=== PATIENT | male | born 1985 | race Caucasian/White ===

== ENCOUNTER 2019-02-02 21:15 | Observation (INO) ==
[2019-02-02] MEDS ORDERED: 0.9 % Sodium Chloride 1,000 ML ONE (21:33)
[2019-02-02] MEDS: 0.9 % Sodium Chloride 1,000 ML IVC SCH ×3 (21:44→23:34)
[2019-02-02] MEDS ORDERED: Ibuprofen 600 MG TABLET PO ONE (21:47)
[2019-02-02 21:50] LABS: Basophils % 0.3 %; Eosinophils % 0.3 %; Hematocrit 41.9 % (37.5-50.1); Hemoglobin 13.9 g/dL (12.9-16.9); Immature Granulocytes % 0.5 % (0-4); Lymphocytes # 1.1 K/mcL (0.6-4.6); Lymphocytes % 8.4 %; Mean Corpuscular HGB Conc 33.2 g/dL (31.6-35.5); Mean Corpuscular Hemoglobin 26.3 pg (28.0-33.3); Mean Corpuscular Volume 79.2 fL (83.0-100.0); Mean Platelet Volume 10.3 fL (9.4-12.4); Monocytes # 1.5 K/mcL (0.0-1.3); Monocytes % 11.4 %; Neutrophils # 10.6 K/mcL (1.6-8.9); Platelet Count 282 K/mcL (140-400); Red Blood Count 5.29 M/mcL (4.19-5.50); Red Cell Distribution Width 13.5 % (11.5-14.5); Segmented Neutrophils % 79.1 %; White Blood Count 13.4 K/mcL (4.3-11.1)
[2019-02-02 21:54] LABS: Bilirubin,Urine Negative (Negative); Blood,Urine Small (Negative); Clarity,Urine Clear (Clear); Color,Urine Yellow (Yellow); Glucose,Urine (UA) Normal (Normal); Ketones,Urine Negative (Negative); Leukocyte Esterase,Urine Negative (Negative); Nitrite,Urine Negative (Negative); Protein,Urine Negative (Neg-Trace); Specific Gravity,Urine 1.015 (1.010-1.025); Urobilinogen,Urine Normal (Normal)
[2019-02-02 21:56] LABS: Bacteria,Urine None Seen per hpf (None-Few); Hyaline Casts,Urine None Seen per lpf (None-Few); Squamous Epithelial Cell,Urine Few per lpf (None-Few); WBC,Urine 0-3 per hpf (0-3)
--- NOTE | 2019-02-02 22:50 | Emergency Department Note ---
Disposition Clinical Impression: Community acquired pneumonia Qualifiers: Laterality: left Lung location: upper lobe of lung Qualified Code(s): J18.1 - Lobar pneumonia, unspecified organism Sepsis Qualifiers: Sepsis type: sepsis due to unspecified organism Sepsis acute organ dysfunction status: without acute organ dysfunction Qualified Code(s): A41.9 - Sepsis, unspe cified organism Disposition: Admitted As Inpatient Condition: Fair Time of Disposition: 07:17 Fever HPI - General Chief Complaint: ED Fever Stated Complaint: Fever / Stiff Neck Time Seen by Provider: 02/02/19 21:38 Source: patient Mode of arrival: ambulatory Limitations: no limitations Nursing Notes Reviewed: Yes Vital Signs Reviewed: Yes - History of Present Illness HPI Narrative: 33-year-old male no significant past medical history presenting due to a 2 day history of gradually progressive and worsening sinus pain, pressures, fevers, generalized malaise, headache and neck pain. The patient states that he has chronic sinusitis and is on nasal decongestants, however he says that he has had some right frontal pain which is gotten worse in the past days and has developed high fevers which are only mildly responsive to ibuprofen/Tylenol. The patient states that he has developed stiffness in his neck in the intervening time. Upon my initial evaluation, my general impression is that the patient is flushed, and appears ill but nontoxic. He is otherwise awake, alert, oriented, engaged to conversation and answering questions appropriately. He has full range of his motion of his neck with a negative Brudzinski's tests. There are no overt lateralizing signs, the patient is in no acute distress; their skin appears to be normal in color, they are not pale, not cyanotic, and not diaphoretic, they are sitting up in hospital bed interacting appropriately with environment. Pt Subjective Complaint: fever, malaise, weakness Onset (ago): day(s) Temperature Source: oral Associated symptoms: Reports: chills, rigors, myalgias, headache, nasal congestion, stiff neck, cough Improves with: acetaminophen, ibuprofen Worsens with: nothing Treatments prior to arrival fever: acetaminophen, ibuprofen, "cold medicine" - Related Data Allergies Allergy/AdvReac Type Severity Reaction Status Date / Time No Known Allergies Allergy Verified 07/25/18 17:14 Review of Systems: *See History of Present Illness for more detail Constitutional: Admits: fever, chills HEENT: admits to frontal sinus pain/pressure, nasal congestion Cardiovascular: Denies: chest pain Respiratory: Admits productive cough of yellow sputum. Denies: dyspnea, hemoptysis Gastrointestinal: Denies: abdominal pain, nausea, vomiting, diarrhea, constipation, hematemesis, melena, hematochezia Genitourinary: Denies: hematuria Musculoskeletal: Admits to neck pain/stiffness. Denies: back pain Integumentary: Denies: rash Neurological: Admits: headache, weakness, lightheadedness/dizziness, denies: numbness, paresthesias, difficulty with ambulation. Endocrine: Admits: fatigue All systems ED: reviewed and negative except as stated. Review of Systems: As Per HPI Fever PMH - Past Medical History Medical history: Reports: non-contributory Surgical history: Reports: no surgical history - Social History Smoking Status: Never smoker Alcohol use: Reports: none Drug use: Reports: none Physical Exam Constitutional: No acute distress, [id number], engaged to conversation, speech is fluid, answers questions appropriately Neuro: GCS 15, no overt focal neurological deficits Head: Atraumatic, normocephalic Eyes: Pupils equal, round and reactive to light, no scleral icterus, no conjunctival injection Neck: Trachea midline without deviation. Anterior neck is supple without swelling. *Chest: Symmetric chest wall rise *Heart: Cardiac rate is tachycardic with regular rhythm with S1 and S2 , no S3 or S4 appreciated, no murmurs, gallops, rubs, or clicks. *Lungs: Lungs are clear to auscultation bilaterally, without accessory muscle use or prolonged expiratory phase. No wheezes, rhonchi or stridor appreciated. Abdomen: Abdomen is flat, soft to palpation, normal bowel sounds. No abdominal bruit auscultated. Non-distended, non-rigid, no organomegaly, no ascites appreciated. No pulsatile mass, no tenderness or guarding to palpation in all four quadrants, no rebound Extremities: Normal capillary refill without evidence of pedal edema, joint swelling or erythema. Pulses/motor intact in all 4 extremities. Psychiatric exam: Patient displays a normal affect and mood for the environment. No overt signs of hallucination. Integumentary: Appears flushed, skin is otherwise warm, dry, intact, normal co jessika. No rash, cyanosis, diaphoresis, or pallor - General Limitations: no limitations General appearance: alert, in no apparent distress Course Vital Signs Temperature 103.0 F H 02/02/19 21:22 Pulse Rate 148 02/02/19 21:22 Respiratory Rate 17 02/02/19 21:22 Blood Pressure 131/91 02/02/19 21:22 O2 Sat by Pulse Oximetry 99 02/02/19 21:22 Temperature 99.4 F 02/03/19 07:04 Pulse Rate 89 02/03/19 07:04 Respiratory Rate 21 02/03/19 07:04 Blood Pressure 143/86 02/03/19 07:04 O2 Sat by Pulse Oximetry 100 02/03/19 07:04 Oxygen Delivery Oxygen Delivery Room Air Fever - MDM Narrative Medical decision making narrative: Patient with elevated white count, x-ray findings concerning for left lower lobe pneumonia. Patient was given IV fluids for sepsis alert as well as azithromycin antibiotic coverage here in the ED. Patient states that he feels better with ma joseph, however given his sepsis status are medical recommendation was admission to hospital medicine service for their evaluation and management. The patient agrees with this plan and will be admitted to the hospitalist medicine service. The patient is hemodynamically stable at the time of admission. - Lab Data Lab results reviewed: Yes I reviewed the patient's lab results. Result diagrams: 02/03/19 05:31 02/03/19 05:31 Lab Results 02/02/19 02/02/19 02/02/19 Range/Units 21:32 21:32 21:32 WBC 13.4 H (4.3-11.1) K/mcL RBC 5.29 (4.19-5.50) M/mcL Hgb 13.9 (12.9-16.9) g/dL Hct 41.9 (37.5-50.1) % MCV 79.2 L (83.0-100.0) fL MCH 26.3 L (28.0-33.3) pg MCHC 33.2 (31.6-35.5) g/dL RDW 13.5 (11.5-14.5) % Plt Count 282 (140-400) K/mcL MPV 10.3 (9.4-12.4) fL Immature Gran % 0.5 (0-4) % Seg Neutrophils % 79.1 % Lymphocytes % 8.4 % Monocytes % 11.4 % Eosinophils % 0.3 % Basophils % 0.3 % Neutrophils # 10.6 H (1.6-8.9) K/mcL Lymphocytes # 1.1 (0.6-4.6) K/mcL Monocytes # 1.5 H (0.0-1.3) K/mcL Eosinophils # 0.0 (0.0-0.6) K/mcL Basophils # 0.0 (0.0-0.2) K/mcL Sodium 135 L (136-145) mEq/L Potassium 3.8 (3.5-5.1) mEq/L Chloride 100 (98-107) mEq/L Carbon Dioxide 26 (23-29) mEq/L BUN 9 (6-20) mg/dL Creatinine 0.92 (0.70-1.30) mg/dL Est GFR ( Amer) > 60 (> 60) Est GFR (Non-Af Amer) > 60 (> 60) BUN/Creatinine Ratio 10 (6-26) Glucose 116 H (70-105) mg/dL Calculated Osmolality 280 (280-300) Lactic Acid 1.9 (0.5-2.2) mmol/L Calcium 9.8 (8.6-10.3) mg/dL Urine Color (Yellow) Urine Clarity (Clear) Urine pH (5.0-8.0) pH Units Ur Specific [place] (1.010-1.025) Urine Protein (Neg-Trace) mg/dL Urine Glucose (UA) (Normal) mg/dL Urine Ketones (Negative) mg/dL Urine Blood (Negative) Urine Nitrite (Negative) Urine Bilirubin (Negative) Urine Urobilinogen (Normal) mg/dL Ur Leukocyte Esterase (Negative) Urine Microscopic RBC (0-3) per hpf Urine Microscopic WBC (0-3) per hpf Ur Squamous Epith Cells (None-Few) per lpf Urine Bacteria (None-Few) per hpf Hyaline Casts (None-Few) per lpf Ur Culture Indicated? (NO) 02/02/19 Range/Units 21:37 WBC (4.3-11.1) K/mcL RBC (4.19-5.50) M/mcL Hgb (12.9-16.9) g/dL Hct (37.5-50.1) % MCV (83.0-100.0) fL MCH (28.0-33.3) pg MCHC (31.6-35.5) g/dL RDW (11.5-14.5) % Plt Count (140-400) K/mcL MPV (9.4-12.4) fL Immature Gran % (0-4) % Seg Neutrophils % % Lymphocytes % % Monocytes % % Eosinophils % % Basophils % % Neutrophils # (1.6-8.9) K/mcL Lymphocytes # (0.6-4.6) K/mcL Monocytes # (0.0-1.3) K/mcL Eosinophils # (0.0-0.6) K/mcL Basophils # (0.0-0.2) K/mcL Sodium (136-145) mEq/L Potassium (3.5-5.1) mEq/L Chloride (98-107) mEq/L Carbon Dioxide (23-29) mEq/L BUN (6-20) mg/dL Creatinine (0.70-1.30) mg/dL Est GFR ( Amer) (> 60) Est GFR (Non-Af Amer) (> 60) BUN/Creatinine Ratio (6-26) Glucose (70-105) mg/dL Calculated Osmolality (280-300) Lactic Acid (0.5-2.2) mmol/L Calcium (8.6-10.3) mg/dL Urine Color Yellow (Yellow) Urine Clarity Clear (Clear) Urine pH 7.0 (5.0-8.0) pH Units Ur Specific [place] 1.015 (1.010-1.025) Urine Protein Negative (Neg-Trace) mg/dL Urine Glucose (UA) Normal (Normal) mg/dL Urine Ketones Negative (Negative) mg/dL Urine Blood Small H (Negative) Urine Nitrite Negative (Negative) Urine Bilirubin Negative (Negative) Urine Urobilinogen Normal (Normal) mg/dL Ur Leukocyte Esterase Negative (Negative) Urine Microscopic RBC 5-15 H (0-3) per hpf Urine Microscopic WBC 0-3 (0-3) per hpf Ur Squamous Epith Cells Few (None-Few) per lpf Urine Bacteria None Seen (None-Few) per hpf Hyaline Casts None Seen (None-Few) per lpf Ur Culture Indicated? NO (NO) - Radiology Data Radiology results reviewed: Yes I reviewed the patient's radiology results. Chest X-Ray 02/02/19 21:39 IMPRESSION: Focal opacities at the left lung base are favored to represent summation artifact as opposed to airspace disease. Otherwise unremarkable exam. D/ / Ck Torres / Ck Torres Interpreting Provider: Ck Torres Sinuses CT 02/03/19 00:58 IMPRESSION: No air-fluid levels. Essentially complete opacification of the left sphenoid sinus. Maxillary sinus disease is likely chronic. D/ / Misael Putnam MD / Misael Putnam MD Interpreting Provider: Misael Putnam MD
[2019-02-02 22:54] LABS: BUN/Creatinine Ratio 10 (6-26); Blood Urea Nitrogen 9 mg/dL (6-20); Calcium 9.8 mg/dL (8.6-10.3); Carbon Dioxide 26 mEq/L (23-29); Chloride 100 mEq/L (98-107); Glucose 116 mg/dL (70-105); Osmolality,Calculated 280 (280-300); Potassium 3.8 mEq/L (3.5-5.1); Sodium 135 mEq/L (136-145); eGFR For African Americans > 60 (> 60); eGFR For Non-African Americans > 60 (> 60)
--- NOTE | 2019-02-02 22:59 | Emergency Department Note ---
Disposition Clinical Impression: Community acquired pneumonia Qualifiers: Laterality: left Lung location: upper lobe of lung Qualified Code(s): J18.1 - Lobar pneumonia, unspecified organism Sepsis Qualifiers: Sepsis type: sepsis due to unspecified organism Sepsis acute organ dysfunction status: without acute organ dysfunction Qualified Code(s): A41.9 - Sepsis, unspe cified organism Disposition: Admitted As Inpatient Condition: Fair Time of Disposition: 00:05 General Adult HPI - General Chief complaint: ED Fever Stated complaint: Fever / Stiff Neck Time Seen by Provider: 02/02/19 21:38 Source: patient Limitations: no limitations Nursing Notes Reviewed: Yes Vital Signs Reviewed: Yes - History of Present Illness Pain Scale: 4 - Related Data Previous Rx's Medication Instructions Recorded Ibuprofen [Motrin] 800 mg PO Q8HR #30 tablet 07/25/18 Loratadine/Pseudophed (12 HR) 1 each PO BID #20 tab.er.12h 07/25/18 [Claritin D (12HR)] Oseltamivir [Tamiflu] 75 mg PO BID #10 capsule 07/25/18 Promethazine/Dextromethorphan 5 ml PO QID #240 syrup 07/25/18 [Promethazine-Dm Syrup] Allergies Allergy/AdvReac Type Severity Reaction Status Date / Time No Known Allergies Allergy Verified 07/25/18 17:14 Past Medical History - Past Medical History Medical history: Reports: non-contributory Surgical history: Reports: no surgical history - Social History Smoking Status: Never smoker Smokeless Tobacco Status: No Alcohol use: Reports: none Drug use: Reports: none Physical Exam - General Limitations: no limitations General appearance: alert Course Vital Signs Temperature 103.0 F H 02/02/19 21:22 Pulse Rate 148 02/02/19 21:22 Respiratory Rate 17 02/02/19 21:22 Blood Pressure 131/91 02/02/19 21:22 O2 Sat by Pulse Oximetry 99 02/02/19 21:22 Temperature 103.0 F H 02/02/19 21:22 Pulse Rate 124 02/02/19 22:34 Respiratory Rate 18 02/02/19 22:34 Blood Pressure 135/72 02/02/19 22:34 O2 Sat by Pulse Oximetry 97 02/02/19 22:34 Oxygen Delivery Oxygen Delivery Room Air Medical Decision Making - Lab Data Lab results reviewed: Yes I reviewed the patient's lab results. Result diagrams: 02/02/19 21:32 02/02/19 21:32 Lab Results 02/02/19 02/02/19 02/02/19 Range/Units 21:32 21:32 21:32 WBC 13.4 H (4.3-11.1) K/mcL RBC 5.29 (4.19-5.50) M/mcL Hgb 13.9 (12.9-16.9) g/dL Hct 41.9 (37.5-50.1) % MCV 79.2 L (83.0-100.0) fL MCH 26.3 L (28.0-33.3) pg MCHC 33.2 (31.6-35.5) g/dL RDW 13.5 (11.5-14.5) % Plt Count 282 (140-400) K/mcL MPV 10.3 (9.4-12.4) fL Immature Gran % 0.5 (0-4) % Seg Neutrophils % 79.1 % Lymphocytes % 8.4 % Monocytes % 11.4 % Eosinophils % 0.3 % Basophils % 0.3 % Neutrophils # 10.6 H (1.6-8.9) K/mcL Lymphocytes # 1.1 (0.6-4.6) K/mcL Monocytes # 1.5 H (0.0-1.3) K/mcL Eosinophils # 0.0 (0.0-0.6) K/mcL Basophils # 0.0 (0.0-0.2) K/mcL Sodium 135 L (136-145) mEq/L Potassium 3.8 (3.5-5.1) mEq/L Chloride 100 (98-107) mEq/L Carbon Dioxide 26 (23-29) mEq/L BUN 9 (6-20) mg/dL Creatinine 0.92 (0.70-1.30) mg/dL Est GFR ( Amer) > 60 (> 60) Est GFR (Non-Af Amer) > 60 (> 60) BUN/Creatinine Ratio 10 (6-26) Glucose 116 H (70-105) mg/dL Calculated Osmolality 280 (280-300) Lactic Acid 1.9 (0.5-2.2) mmol/L Calcium 9.8 (8.6-10.3) mg/dL Urine Color (Yellow) Urine Clarity (Clear) Urine pH (5.0-8.0) pH Units Ur Specific [place] (1.010-1.025) Urine Protein (Neg-Trace) mg/dL Urine Glucose (UA) (Normal) mg/dL Urine Ketones (Negative) mg/dL Urine Blood (Negative) Urine Nitrite (Negative) Urine Bilirubin (Negative) Urine Urobilinogen (Normal) mg/dL Ur Leukocyte Esterase (Negative) Urine Microscopic RBC (0-3) per hpf Urine Microscopic WBC (0-3) per hpf Ur Squamous Epith Cells (None-Few) per lpf Urine Bacteria (None-Few) per hpf Hyaline Casts (None-Few) per lpf Ur Culture Indicated? (NO) 02/02/19 Range/Units 21:37 WBC (4.3-11.1) K/mcL RBC (4.19-5.50) M/mcL Hgb (12.9-16.9) g/dL Hct (37.5-50.1) % MCV (83.0-100.0) fL MCH (28.0-33.3) pg MCHC (31.6-35.5) g/dL RDW (11.5-14.5) % Plt Count (140-400) K/mcL MPV (9.4-12.4) fL Immature Gran % (0-4) % Seg Neutrophils % % Lymphocytes % % Monocytes % % Eosinophils % % Basophils % % Neutrophils # (1.6-8.9) K/mcL Lymphocytes # (0.6-4.6) K/mcL Monocytes # (0.0-1.3) K/mcL Eosinophils # (0.0-0.6) K/mcL Basophils # (0.0-0.2) K/mcL Sodium (136-145) mEq/L Potassium (3.5-5.1) mEq/L Chloride (98-107) mEq/L Carbon Dioxide (23-29) mEq/L BUN (6-20) mg/dL Creatinine (0.70-1.30) mg/dL Est GFR ( Amer) (> 60) Est GFR (Non-Af Amer) (> 60) BUN/Creatinine Ratio (6-26) Glucose (70-105) mg/dL Calculated Osmolality (280-300) Lactic Acid (0.5-2.2) mmol/L Calcium (8.6-10.3) mg/dL Urine Color Yellow (Yellow) Urine Clarity Clear (Clear) Urine pH 7.0 (5.0-8.0) pH Units Ur Specific [place] 1.015 (1.010-1.025) Urine Protein Negative (Neg-Trace) mg/dL Urine Glucose (UA) Normal (Normal) mg/dL Urine Ketones Negative (Negative) mg/dL Urine Blood Small H (Negative) Urine Nitrite Negative (Negative) Urine Bilirubin Negative (Negative) Urine Urobilinogen Normal (Normal) mg/dL Ur Leukocyte Esterase Negative (Negative) Urine Microscopic RBC 5-15 H (0-3) per hpf Urine Microscopic WBC 0-3 (0-3) per hpf Ur Squamous Epith Cells Few (None-Few) per lpf Urine Bacteria None Seen (None-Few) per hpf Hyaline Casts None Seen (None-Few) per lpf Ur Culture Indicated? NO (NO) - Radiology Data Radiology results reviewed: Yes I reviewed the patient's radiology results. Chest X-Ray 02/02/19 21:39 IMPRESSION: Focal opacities at the left lung base are favored to represent summation artifact as opposed to airspace disease. Otherwise unremarkable exam. D/ / Ck Torres / Ck Torres Interpreting Provider: Ck Torres - EKG Data EKG #1 EKG attestation: Yes I reviewed and interpreted this EKG. EKG results narrative: EKG shows a sinus tachycardia with ventricular rate of 139. No significant ST segment elevation or depression. No arrhythmia or ectopy. Critical Care Time Critical Care Time: Yes Total Critical Care Time: 45 Attestation: Critical care performed: Time is exclusive of separately billable procedures. Time includes: direct patient care, patient reassessment, coordination of patient care, interpretation of data (laboratory data, radiology data, and respiratory data), review of patient's medical records, medical consultation and documentation of patient car e. Procedures included in critical care time: Procedures excluded from critical care time: Attestation Statement - Attestation Attestation: IAlex MD, personally evaluated this patient and discussed their management with the resident physician. I reviewed the resident's note and agree with the documented findings, medical decision making, and plan of care. I reviewed the residents documentation and agree with the residents assessment and plan of care. I have personally had face to face time with the patient. I personally supervised and was present for the nieves/critical portions of the following procedures completed by the resident: EKG interpretation. 33-year-old male presents to the emergency department with a complaint of fairly rapid onset of chills and fever and generalized weakness a few hours prior to arrival. He states for the past few days he has had some sinus congestion and frontal headache. Some pain in the anterior or lateral neck area below the ears radiating down the jaw bilaterally. He has had a productive cough with some yellow sputum. On arrival to the emergency department the patient meets sepsis criteria. He is tachycardic with a heart rate in the 140s and a temperature of 103. Alert was called. On examination patient is a well-developed well-nourished male in no acute distress. He is alert and oriented 3. There is no cyanosis. Patient is diaphoretic. Neck is supple with full range of motion. No posterior cervical tenderness. Touches chin to chest without discomfort. There is mild tenderness at the angle of the mandible bilaterally beneath the ears. No palpable cervical lymphadenopathy. Chest is nontender to palpation. Breath sounds are clear and equal bilaterally. Heart is regular with a marked tachycardia. Abdomen is soft and nontender with normal bowel sounds. Extremities are nontender with full range of motion. No focal neurological deficits. EKG shows a sinus tachycardia with ventricular rate of 139. No significant ST segment elevation or depression. No arrhythmia or ectopy. Chest x-ray shows some left basilar opacities. On reviewing the film myself this appears to be a left lingular infiltrate. Labs reviewed. WBC 13.4. Blood cultures obtained and antibiotics initiated. The hospitalist, Dr. Silva, was consulted and accepted admission of the patient.
[2019-02-02] MEDS ORDERED: Azithromycin 500 MG in D5% in Water 250 ML IVPB ONE (23:00)
[2019-02-03] MEDS ORDERED: Ondansetron 4 MG/2 ML VIAL IVP PRN (00:58)
[2019-02-03] MEDS ORDERED: Acetaminophen 325 MG TABLET PO PRN (00:59)
[2019-02-03] MEDS ORDERED: Ibuprofen 400 MG TABLET PO PRN (00:59)
[2019-02-03] MEDS ORDERED: traMADol 50 MG TABLET PO PRN (00:59)
[2019-02-03] MEDS: Ringers Solution, Lactated 1,000 ML IVC SCH ×2 (01:37→06:25)
--- NOTE | 2019-02-03 01:42 | Internal Med History&Physical ---
Date of Encounter: 02/03/19 Time of Encounter: 01:41 Internal Medicine - H&P: HPI Chief complaint: fever Admitted From: Home Plans for Post Hospital Care: Home History of present illness: Andrey Fernandez is a 33 year old man who denies any past medical history resenting to the emergency room with the complaint of fever and chills that started a few hours prior to arrival. He says that over the last few days he has been having some sinus congestion in the frontal aspect some tenderness in his submandibular region. He says he frequently gets sinus infections and suffers from seasonal allergies so he thought nothing of it. Denies associated cough and sore throats. He says the frontal headache moved to was the right temporal region and this afternoon while [place] was in [place] [employer] he developed acute onset chills and felt feverish urge reason he decided to come into the emergency room. On arrival he was febrile at 103F and notably tachycardic. He received multiple doses of antipyretics. Lab work revealed a mild leukocyte elevation at 13.4 and otherwise rest of studies were unremarkable. Chest x-ray done revealed no focal consolidations however there was suggestion of a possible lingular opacity so he was treated empirically with azithromycin. He is admitted for observation. He denies pleuritic chest pain, cough, nausea, vomiting and diarrhea. Vitals: Reviewed General: Well-developed and well-appearing young male lying comfortably in bed in no acute distress. Skin: Warm, diaphoretic and flushed. HEENT: Moist mucous membranes. No conjunctivae pallor. No oropharyngeal exudate or tonsillar swelling. Neck: Palpable submandibular lymphadenopathy. No JVD. No carotid bruits. No palpable thyroid. No nuchal rigidity or signs of meningismus. Chest: Normal thoracic expansion. Normal breath sounds. Clear to auscultation. Heart: Normal S1 & S2; rhythmic. No rubs or murmurs. Abdomen: Non-distended, soft and non-tender to palpation. No peritoneal reaction. Extremities: No clubbing, cyanosis or edema. No calf tenderness. Normal distal pulses. Neurological: Awake, alert and oriented to person, place and time. No focal deficits. Psych: Affect appropriate. Assessment/Plan 1. Sepsis syndrome: Suspect secondary to an upper respiratory tract infection. Given the headache and fever with preceding sinus symptoms, meningitis is always a differential however on clinical examination of the patient, he has no meningeal signs or encephalitic concerns. His mental status is within normal limits. He has no photophobia. He says he feels much better just with receiving IVF alone. Pneumonia is also considered however slight it might be on x-ray. Will also need to rule out acute sinusitis so will get a CT scan of his sinuses for air-fluid level assessment. This seems more plausible based on his clinical symptoms. There are no signs of skin/soft tissue infection, gastrointestinal illness or dysuric symptoms. In the interim will keep on empiric antibiotics in conjunction with fluid resuscitation and antipyretics. 2. DVT prophylaxis: Antiembolic stockings ordered. 3. Obesity: Counseled and educated on therapeutic lifestyle changes for weight loss as it will be of benefit in controlling comorbidities. Rheumatology Specialist evaluation advised. Past Med Surg Social Fam HX - Past Medical History Medical history: non-contributory Psychiatric history: no psych history - Past Surgical History Surgical History: no surgical history - Social History Smoking Status: Former smoker Smokeless Tobacco Status: No Alcohol use: none Drug use: none - Family History Mother Living Status: Still Living Hx Family Cardiac Disorders: No Hx Family Respiratory Disorders: No Hx Family Cancer: No Hx Family GI Disorders: No Hx Family Genitourinary Disorders: No Hx Family Endocrine Disorder: No Hx Family Musculoskeletal Disorders: No Hx Family Neuromuscular Disorders: No Hx Family Neurologic Disorders: No Hx Family HEENT Disorders: No Hx Family Autoimmune Disorders: No Hx Family Reproductive Disorders: No Hx Family Psychosocial Disorders: No Hx Family Medical Disorders: No Father Living Status: Still Living Hx Family Cardiac Disorders: No Hx Family Respiratory Disorders: No Hx Family Cancer: No Hx Family GI Disorders: No Hx Family Genitourinary Disorders: No Hx Family Endocrine Disorder: No Hx Family Musculoskeletal Disorders: No Hx Family Neuromuscular Disorders: No Hx Family Neurologic Disorders: No Hx Family HEENT Disorders: No Hx Family Autoimmune Disorders: No Hx Family Reproductive Disorders: No Hx Family Psychosocial Disorders: No Hx Family Medical Disorders: No Internal Medicine - H&P: Meds Allergy/AdvReac Type Severity Reaction Status Date / Time No Known Allergies Allergy Verified 07/25/18 17:14 All Systems PM: A 10-system review of systems was performed and is negative for pertinent findings except as documented above in the HPI. Family history reviewed and found non-contributory. - Constitutional Vitals: Temp Pulse Resp BP Pulse Ox 99.9 F H 102 16 120/78 95 02/03/19 01:26 02/03/19 01:26 02/03/19 01:26 02/03/19 01:26 02/03/19 01:26 Exam: . Internal Med - H&P Results - Labs CBC & Chem 7: 02/02/19 21:32 02/02/19 21:32 Labs: Short CBC 02/02/19 Range/Units 21:32 WBC 13.4 H (4.3-11.1) K/mcL Hgb 13.9 (12.9-16.9) g/dL Hct 41.9 (37.5-50.1) % Plt Count 282 (140-400) K/mcL Neutrophils # 10.6 H (1.6-8.9) K/mcL BMP 02/02/19 21:32 Sodium 135 L Potassium 3.8 Chloride 100 Carbon Dioxide 26 BUN 9 Creatinine 0.92 Glucose 116 H Calcium 9.8 Urine 02/02/19 Range/Units 21:37 Urine Color Yellow (Yellow) Urine Clarity Clear (Clear) Urine pH 7.0 (5.0-8.0) pH Units Ur Specific [place] 1.015 (1.010-1.025) Urine Protein Negative (Neg-Trace) mg/dL Urine Glucose (UA) Normal (Normal) mg/dL - Impressions ITS Impressions Chest X-Ray 02/02/19 21:39 IMPRESSION: Focal opacities at the left lung base are favored to represent summation artifact as opposed to airspace disease. Otherwise unremarkable exam. D/ / Ck Torres / Ck Torres Interpreting Provider: Ck Torres - Time Spent With Patient Total time spent is greater than 50% in coordination of care (as documented) at patient's floor/unit and/or counseling patient:
[2019-02-03] MEDS ORDERED: Ampicillin/Sulbactam 3,000 MG in 0.9 % Sodium Chloride Mini Bag 100 ML IVPB SCH (06:00)
[2019-02-03 06:20] LABS: Basophils % 0.3 %; Hematocrit 37.6 % (37.5-50.1); Immature Granulocytes % 0.4 % (0-4); Lymphocytes # 1.3 K/mcL (0.6-4.6); Lymphocytes % 14.3 %; Mean Corpuscular HGB Conc 32.4 g/dL (31.6-35.5); Mean Corpuscular Hemoglobin 26.5 pg (28.0-33.3); Mean Corpuscular Volume 81.7 fL (83.0-100.0); Mean Platelet Volume 10.4 fL (9.4-12.4); Monocytes # 1.5 K/mcL (0.0-1.3); Monocytes % 16.7 %; Neutrophils # 6.1 K/mcL (1.6-8.9); Platelet Count 242 K/mcL (140-400); Red Cell Distribution Width 13.6 % (11.5-14.5); Segmented Neutrophils % 68.3 %
[2019-02-03 06:23] LABS: Hemoglobin 12.2 g/dL (12.9-16.9)
[2019-02-03 06:43] LABS: BUN/Creatinine Ratio 11 (6-26); Blood Urea Nitrogen 8 mg/dL (6-20); Calcium 8.8 mg/dL (8.6-10.3); Carbon Dioxide 26 mEq/L (23-29); Chloride 104 mEq/L (98-107); Glucose 110 mg/dL (70-105); Osmolality,Calculated 289 (280-300); Potassium 3.8 mEq/L (3.5-5.1); Sodium 140 mEq/L (136-145); eGFR For African Americans > 60 (> 60); eGFR For Non-African Americans > 60 (> 60)
[2019-02-03] MEDS ORDERED: Azithromycin 500 MG in D5% in Water 250 ML IVPB SCH (09:00)
[2019-02-03] MEDS ORDERED: cefTRIAXone 1,000 MG in Water for inj. (sterile) 10 ML IVPB SCH (09:00)
[2019-02-03 11:44] VITALS: BP 132/86
--- NOTE | 2019-02-03 11:53 | Discharge Summary ---
- NOTES TO OUTPATIENT PROVIDER Notes to Outpatient Provider: f/u with PCP in 3-5 days. Orders not resulted at time of discharge: Pending orders 02/02/19 21:32 Culture,Blood [BC] Stat Date of Encounter: 02/03/19 Time of Encounter: 10:40 - Discharge Diagnosis (1) Sepsis Priority: Primary Status: Acute Qualifiers: Sepsis type: sepsis due to unspecified organism Sepsis acute organ dysfunction status: without acute organ dysfunction Qualified Code(s): A41.9 - Sepsis, unspecified organism (2) Community acquired pneumonia Priority: Primary Status: Acute Qualifiers: Laterality: left Lung location: upper lobe of lung Qualified Code(s): J18.1 - Lobar pneumonia, unspecified organism (3) Sinusitis chronic, sphenoidal Priority: Secondary Status: Acute Hospital course: Mr. Fernandez is a 33 year old male with no significant past medical history presented to ER with the complaint of fever and chills that started a few hours prior to arrival. He has been having some sinus congestion in the frontal aspect some tenderness in his submandibular region. He says he frequently gets sinus infections and suffers from seasonal allergies.He did have frontal headache . Y/d while he was in [place] [employer] he developed acute onset chills and felt feverish. On arrival he was febrile at 103F and notably tachycardia. Pt was given IV hydration and supportive care. His CXR showed Focal opacities at the left lung base. His CT of sinuses showed complete opacification of the left sphenoid sinus. Maxillary sinus disease is likely chronic. Pt was placed on empirical abx Azithromycin and Rocephin. Pt stated he is feeling better today. He denied any more ALC[place]. He remained afebrile since he got admitted to the floor. He denied any confusion / neck pain / body aches. Will d/c him home ins table condition today with PO Abx Augmentin and recommended to f.u with PCP in one week. - Time Spent with Patient Total time spent providing and/or coordinating discharge services: - Discharge Medications Prescriptions: New Amoxicillin/Clavulanate [Augmentin] 875 mg PO BIDWM #20 tablet Lactobacillus Acidophilus [Acidophilus] 1 each PO BID #20 capsule Home Medications: Amoxicillin/Clavulanate [Augmentin] 875 mg PO BIDWM #20 tablet 08/05/19 [Rx] Lactobacillus Acidophilus [Acidophilus] 1 each PO BID #20 capsule 02/03/19 [Rx] Allergies/Adverse Reactions: Allergy/AdvReac Type Severity Reaction Status Date / Time No Known Allergies Allergy Verified 07/25/18 17:14 Date of admission: 02/03/19 00:12 Primary care physician: Paul Collazo MD - Constitutional Vitals: Temp Pulse Resp BP Pulse Ox 98.2 F 100 16 132/86 98 02/03/19 11:42 02/03/19 11:42 02/03/19 11:42 02/03/19 11:42 02/03/19 11:42 General appearance: Present: cooperative, A&O X 3, no acute distress, answers questions appropriately Exam: a - Head Head exam: Present: atraumatic, normal inspection - Neck Neck exam general surgery: Present: supple - Respiratory Respiratory exam: Present: decreased breath sounds. Absent: rales, respiratory distress, wheezes - Cardiovascular Cardiovascular exam: Present: RRR, +S1, +S2. Absent: tachycardia - GI/Abdominal GI/Abdominal exam: Present: normal bowel sounds, soft. Absent: rebound, rigid, tenderness - Extremities Exam Extremities exam: Absent: calf tenderness, pedal edema, tenderness - Back Exam Back exam: Absent: CVA tenderness (L), CVA tenderness (R) - Neurological Exam Neurological exam: Present: alert, CN II-XII intact, normal gait, oriented X3, no focal deficits, strengths equal and symetr throughout. Absent: pronater drift, facial droop, speech deficit - Patient Status Disposition: Home, Self-Care Condition: Good Overall status at discharge: patient is back to baseline - Discharge Instructions Instructions: Community-acquired Pneumonia (DC) Follow Up With: Paul Collazo MD [Primary Care Provider] - Additional Instructions: Follow-up appointments: If there is not an appointment listed below, please call your physician and schedule a follow-up appointment. If you have congestive heart failure and your symptoms return, make an appointment with your physician. Medication List: Carry an up to date list of medications you are taking at all time. We have given you an updated medication list including any new medications that you have been prescribed. Please provide that list to your primary provider Symptoms: If your condition changes or you experience any of the following symptoms, notify your physician immediately: Unusual or worsening pain, fever, persistent nausea and vomiting, bleeding, increase in swelling (especially in your legs), sudden weight gain, extreme dizziness, chest pain, increased drainage or redness from a wound or incision. Go to the emergency department if you experience a problem with breathing. Weights: If you have a history of swelling or shortness of breath, weigh yourself daily and notify your physician if you have a weight gain of two or more pounds in one day or 5 or more pounds in a week. If you experience any of the warning signs for stroke: Sudden numbness or weakness of the face, arm or leg; especially on one side of the body, sudden confusion, trouble speaking or understanding, sudden trouble seeing in one or both eyes, sudden trouble walking, dizziness, loss of balance or coordination, sudden sever headache with no cause; Call 911 or go to the emergency room. Stroke is a medical emergency. Some risk factors for stroke: Age, cigarette smoking, diabetes, excessive alcohol consumption, family history, high blood pressure, overweight, physical inactivity, prior stroke, heart attack, diagnosis of carotid artery stenosis or other artery disease. If you smoke, STOP: Smoking or tobacco use significantly increases your risk of heart and lung disease. Your chance of disease greatly increases if you continue to smoke. For more information, call the [facility] [facility] tobacco quit line for smoking cessation 0-587-LNAM-NOW ( ) - Diet and Activity Activity: increase activity as tolerated Diet: low salt diet
--- NOTE | 2019-02-04 06:42 | Electrocardiograph Report ---
[facility] [facility] Test Date: 2019-02-02 Pat Name: Andrey Fernandez Department: EXAM4 Room: 3B39 Gender: M Sourcing Analyst: : 1985 Requested By: Alfonso Anthony Order Number: [id number] Reading MD: Mian Lopez Measurements Intervals [place] Rate: 139 P: 60 IN: 146 QRS: 76 QRSD: 97 T: -33 QT: 260 QTc: 396 Interpretive Statements Sinus tachycardia Nonspecific T abnormalities Electronically Signed On 02-04-2019 6:41:06 EDT by Mian Lopez
== END 2019-02-03 12:45 | disposition home or self-care (01) ==
LOC: EMEROOARM 21:15 → 3BNU 21:15 → SUATTDRO 02-03 00:12 → 3BNU 02-03 01:12
PROVIDERS: ADMIT Internal Medicine; ATTEND Family Medicine

== ENCOUNTER 2021-12-12 09:00 | Observation (INO) ==
[2021-12-12] MEDS ORDERED: Aspirin 81 MG TAB.CHEW PO ONE (09:22)
[2021-12-12 09:40] LABS: Basophils % 0.4 %; Eosinophils # 0.5 K/mcL (0.0-0.6); Eosinophils % 5.4 %; Hematocrit 41.6 % (37.5-50.1); Hemoglobin 13.6 g/dL (12.9-16.9); Immature Granulocytes % 0.5 % (0-4); Lymphocytes # 3.2 K/mcL (0.6-4.6); Mean Corpuscular HGB Conc 32.7 g/dL (31.6-35.5); Mean Corpuscular Hemoglobin 26.1 pg (28.0-33.3); Mean Corpuscular Volume 79.7 fL (83.0-100.0); Mean Platelet Volume 10.5 fL (9.4-12.4); Monocytes # 1.2 K/mcL (0.0-1.3); Monocytes % 11.9 %; Neutrophils # 4.8 K/mcL (1.6-8.9); Platelet Count 352 K/mcL (140-400); Red Blood Count 5.22 M/mcL (4.19-5.50); Red Cell Distribution Width 12.8 % (11.5-14.5); Segmented Neutrophils % 48.8 %; White Blood Count 9.8 K/mcL (4.3-11.1)
[2021-12-12 09:47] LABS: INR 1.1; Prothrombin Time 12.3 Seconds (9.4-12.1)
[2021-12-12 09:50] LABS: Activated Partial Thrombo Time 32.5 Seconds (26.0-36.0)
[2021-12-12] MEDS: Nitroglycerin 0.4 MG TAB.SUBL SL PRN ×2 (09:54→10:01)
[2021-12-12 10:07] LABS: Alanine Aminotransferase 18 Units/L (7-52); Albumin 4.1 g/dL (3.5-5.7); Albumin/Globulin Ratio 1.1 (1.1-2.2); Alkaline Phosphatase 82 Units/L (34-104); Aspartate Amino Transferase 18 Units/L (13-39); BUN/Creatinine Ratio 13 (6-26); Bilirubin,Direct 0.1 mg/dL (0.0-0.2); Bilirubin,Indirect 0.3 mg/dL (0.0-1.0); Bilirubin,Total 0.4 mg/dL (0.3-1.0); Blood Urea Nitrogen 11 mg/dL (6-20); Calcium 9.2 mg/dL (8.6-10.3); Carbon Dioxide 27 mEq/L (23-29); Chloride 102 mEq/L (98-107); Globulin 3.7 g/dL (2.4-3.5); Glucose 104 mg/dL (70-105); Lipase 25 Units/L (11-82); Osmolality,Calculated 284 (280-300); Potassium 3.6 mEq/L (3.5-5.1); Sodium 137 mEq/L (136-145); Total Protein 7.8 g/dL (6.4-8.9); Troponin I < 0.03 ng/mL (< 0.04); eGFR For African Americans > 60 (> 60); eGFR For Non-African Americans > 60 (> 60)
[2021-12-12] MEDS ORDERED: Perflutren Lipid Microsphere 1.3 ML in 0.9 % Sodium Chloride 8.7 ML IVP PRN (11:06)
[2021-12-12] MEDS ORDERED: Metoprolol XL (24 HR) Succ 25 MG TAB.ER.24H PO SCH (11:15)
[2021-12-12 15:21] LABS: Amphetamine Screen,Urine Negative ng/mL (Cutoff=1000); Barbiturate Screen,Urine Negative ng/mL (Cutoff=200); Benzodiazepines Screen,Urine Negative ng/mL (Cutoff=200); Cannabinoid Screen,Urine Negative ng/mL (Cutoff = 50); Cocaine Screen,Urine Negative ng/mL (Cutoff= 300); Opiate Screen,Urine Negative ng/mL (Cutoff=300); Phencyclidine Screen,Urine Negative ng/mL (Cutoff=25)
[2021-12-13 05:04] LABS: Basophils # 0.1 K/mcL (0.0-0.2); Basophils % 0.6 %; Eosinophils # 0.5 K/mcL (0.0-0.6); Eosinophils % 4.8 %; Hematocrit 39.7 % (37.5-50.1); Hemoglobin 12.8 g/dL (12.9-16.9); Immature Granulocytes % 0.5 % (0-4); Lymphocytes # 2.6 K/mcL (0.6-4.6); Lymphocytes % 24.8 %; Mean Corpuscular HGB Conc 32.2 g/dL (31.6-35.5); Mean Corpuscular Hemoglobin 26.1 pg (28.0-33.3); Mean Platelet Volume 10.2 fL (9.4-12.4); Monocytes # 1.3 K/mcL (0.0-1.3); Monocytes % 12.9 %; Neutrophils # 5.9 K/mcL (1.6-8.9); Platelet Count 299 K/mcL (140-400); Red Cell Distribution Width 13.1 % (11.5-14.5); Segmented Neutrophils % 56.4 %; White Blood Count 10.4 K/mcL (4.3-11.1)
[2021-12-13 05:08] LABS: INR 1.1; Prothrombin Time 12.1 Seconds (9.4-12.1)
[2021-12-13 05:21] LABS: Alanine Aminotransferase 15 Units/L (7-52); Albumin 3.6 g/dL (3.5-5.7); Albumin/Globulin Ratio 1.1 (1.1-2.2); Alkaline Phosphatase 70 Units/L (34-104); Aspartate Amino Transferase 15 Units/L (13-39); BUN/Creatinine Ratio 14 (6-26); Bilirubin,Total 0.3 mg/dL (0.3-1.0); Blood Urea Nitrogen 11 mg/dL (6-20); Calcium 9.1 mg/dL (8.6-10.3); Carbon Dioxide 28 mEq/L (23-29); Chloride 105 mEq/L (98-107); Globulin 3.2 g/dL (2.4-3.5); Glucose 94 mg/dL (70-105); Osmolality,Calculated 287 (280-300); Potassium 4.2 mEq/L (3.5-5.1); Sodium 139 mEq/L (136-145); Total Protein 6.8 g/dL (6.4-8.9); eGFR For African Americans > 60 (> 60); eGFR For Non-African Americans > 60 (> 60)
[2021-12-13] MEDS ORDERED: Aspirin 81 MG TAB.CHEW PO SCH (09:00)
[2021-12-13 14:57] VITALS: BP 130/83; PULSE 76; TEMP 97.4; O2SAT 94
== END 2021-12-13 15:42 | disposition home or self-care (01) ==
LOC: EMEROOARM 09:00 → 3BNU 09:00 → SUATTDRO 11:14 → 3BNU 12:05
PROVIDERS: ADMIT Hospitalist; ATTEND Registered Nurse